=== PATIENT | male | born 1995 | race Caucasian/White ===

== ENCOUNTER 2018-08-03 09:57 | Emergency (ER) | payer MEDICAID ==
[2018-08-03] MEDS ORDERED: ACETAMINOPHEN 325 MG TABLET PO ONE (11:06)
--- NOTE | 2018-08-03 11:53 | RADIOLOGY REPORT (SQ) ---
EXAM DESCRIPTION: CT HEAD WITHOUT COMPLETED DATE/TIME: 08/03/2018 11:42 am REASON FOR STUDY: pain behind right eye COMPARISON: None. TECHNIQUE: Axial images acquired through the brain without intravenous contrast. Images reviewed wi th bone, brain and subdural windows. Additional sagittal and coronal reconstructions were generated. Images stored on PACS. All CT scanners at this facility use dose modulation, iterative reconstruction, and/or weight based d osing when appropriate to reduce radiation dose to as low as reasonably achievable (ALARA). [facility]: Dose Right [facility]: CareDose [facility]: Dose Right [facility]: Teradose 4D [facility]: Smart [employer] RADIATION DOSE: CT Rad equipment meets quality standard of care and radiation dose reduction techniq ues were employed. CTDIvol: 53.2 mGy. DLP: 991 mGy-cm. mGy. LIMITATIONS: None. FINDINGS: VENTRICLES: Normal size and contour. CEREBRUM: No masses. No hemorrhage. No midline shift. No evidence for acute infarction. Normal gra y/white matter differentiation. No areas of low density in the white matter. CEREBELLUM: No masses. No hemorrhage. No alteration of density. No evidence for acute infarction. EXTRAAXIAL SPACES: No fluid collections. No masses. ORBITS AND GLOBE: No intra- or extraconal masses. Normal contour of globe without masses. CALVARIUM: No fracture. PARANASAL SINUSES: No fluid or mucosal thickening. SOFT TISSUES: No mass or hematoma. OTHER: No other significant finding. IMPRESSION: NORMAL BRAIN CT WITHOUT CONTRAST. EVIDENCE OF ACUTE STROKE: NO. COMMENT: Quality ID # [id number]: Final reports with documentation of one or more dose reduction techniques (e.g., Automated exposure control, adjustment of the mA and/or kV according to patient size, use of iterative reconstruction technique) TECHNICAL DOCUMENTATION: JOB ID: [id number] [employer]- All Rights Reserved Reading location - IP/workstation name: [email or web address]
--- NOTE | 2018-08-03 12:06 | ER Document Report ---
HPI - HPI Patient complains to provider of: eye pain Time Seen by Provider: 08/03/18 10:40 Pain Level: 1 Context: Patient is an otherwise healthy 23-year-old male presents to the emergency department with "pain behind my right eye." Patient states yesterday at work he stepped outside and feels as though he had a blurred vision and has a left eye. States "it feels like when you rub your eye really hard and you get the white spots." States that was self-limiting and he continued with his day at work. Patient states this morning when he woke up he had pain behind his right eye. Patient's denying any change in vision of his right or left currently. Patient's denying any history of migraines, mother is in the room who is also did get a family history of migraines. Patient's denying any foreign body sensation to either eyes. No discharge from either eye. Patient's denying any injuries to his head or bilateral eyes. - CONSTITUTIONAL Constitutional: DENIES: Fever, Chills - EENT EENT: REPORTS: Eye problems. DENIES: Sore Throat, Ear Pain - NEURO Neurology: DENIES: Headache, Weakness, Vision blurred, Dizzinesss / Vertigo - CARDIOVASCULAR Cardiovascular: DENIES: Chest pain - RESPIRATORY Respiratory: DENIES: Trouble Breathing, Coughing - GASTROINTESTINAL Gastrointestinal: DENIES: Abdominal Pain, Black / Bloody Stools - URINARY Urinary: DENIES: Dysuria, Urgency, Frequency - MUSCULOSKELETAL Musculoskeletal: DENIES: Extremity pain Past Medical History - General Information source: Patient, Parent - Social History Smoking Status: Unknown if Ever Smoked Chew tobacco use (# tins/day): Yes Frequency of alcohol use: None Drug Abuse: None Family History: Reviewed & Not Pertinent Patient has suicidal ideation: No Patient has homicidal ideation: No Renal/ Medical History: Denies: Hx Peritoneal Dialysis Vertical Provider Document - CONSTITUTIONAL Agree With Documented VS: Yes Notes: GENERAL: Alert, interacts well. No acute distress. HEAD: Normocephalic, atraumatic. EYES: Pupils equal, round, and reactive to light. Extraocular movements intact and painless. Conjunctive are noninjected, no scleral icterus noted. No proptosis noted ENT: Oral mucosa moist, tongue midline. NECK: Full range of motion. Supple. Trachea midline. LUNGS: Clear to auscultation bilaterally, no wheezes, rales, or rhonchi. No respiratory distress. HEART: Regular rate and rhythm. No murmur ABDOMEN: Soft, non-tender. Non-distended. Bowel sounds present in all 4 quadrants. EXTREMITIES: Moves all 4 extremities spontaneously. No edema, normal radial and dorsalis pedis pulses bilaterally. No cyanosis. 5 out of 5 strength all 4 extremities BACK: no cervical, thoracic, lumbar midline tenderness. No saddle anesthesia, normal distal neurovascular exam. NEUROLOGICAL: Alert and oriented x3. Normal speech. cranial nerves II through XII grossly intact. PSYCH: Normal affect, normal mood. SKIN: Warm, dry, normal turgor. No rashes or lesions noted. - INFECTION CONTROL TRAVEL OUTSIDE OF THE [place] IN LAST 30 DAYS: No Course - Re-evaluation Re-evalutation: I discussed this case with my attending Dr. Larissa Kelley. She is suggesting CT imaging to rule out some sort of intracranial mass. Patient's visual acuity is 20/[address] imaging shows no abnormalities. After Tylenol administration patient states he overall feels better no longer has a headache. I have discussed with patient and mother my recommendations to follow-up with neurology and ophthalmology for continued care. Return precautions discussed. Patient stable for discharge. - Vital Signs Vital signs: Temp Pulse Resp BP Pulse Ox 97.6 F 58 L 18 136/56 H 99 08/03/18 10:02 08/03/18 10:02 08/03/18 10:02 08/03/18 10:02 08/03/18 10:02 Discharge - Discharge Clinical Impression: Eye pain Qualifiers: Laterality: right Qualified Code(s): H57.11 - Ocular pain, right eye Headache Qualifiers: Headache type: unspecified Headache chronicity pattern: acute headache Intractability: not intractable Qualified Code(s): R51 - Headache Condition: Stable Disposition: HOME, SELF-CARE Instructions: Headache ([facility]) Additional Instructions: As we discussed you have been seen and treated in the emergency department for what I feel sounds like ocular migraines. CT imaging of your brain reveals no abnormalities. I do suggest you follow-up with ophthalmology and neurology, phone numbers will be provided in this packet. Please return to the emergency room should you have any other concerns. Forms: Return to Work Referrals: PRITESH WU DO [ACTIVE STAFF] - Follow up as needed TIA VO MD [EMERITUS] - Follow up as needed
[2018-08-03 12:21] VITALS: BP 122/62
== END 2018-08-03 12:18 | disposition home or self-care (01) ==
LOC: ER 09:57
DX: H57.11 Ocular pain, right eye (principal); R51 Headache; Z82.0 Family history of epilepsy and other diseases of the nervous system
CPT/HCPCS: 99283; 70450; J3490